=== PATIENT | male | born 1955 | race Caucasian/White ===

== ENCOUNTER 2018-01-31 14:44 | Emergency (ER) | payer OTHER ==
[~2018-01-31 14:44] MED LIST: AMOX-556 PO; DOXY-179 PO; GLIP-154 PO; GUAI400T18 PO; LISI-374 PO; METF-421 PO; METH4TAB66 PO; NICO4LOZ BC; PIOG45TA3 PO; PRAV40TA78 PO; PSEU120T69 PO; RANI-366 PO; [UNRECOGNIZED DRUG - CODE] MC; [UNRECOGNIZED DRUG - OTHER] TP
--- NOTE | 2018-01-31 14:52 | ER Report ---
History and Physical Time Seen By MD: 14:51 HPI/ROS CHIEF COMPLAINT: Throat pain and difficult swallowing HISTORY OF PRESENT ILLNESS: 2-year-old male who presents to the emergency department for a sore throat and difficulty swallowing. Patient states that around 8:00 this morning he developed a sore throat, has increased in size since then significant pain on the right side feels his voice is muffled of the tongue is swollen, feels that the bottom of his mouth is swollen. Patient states he has a history of strep throat however it has been years since he's had any issues. Patient does not appear in distress at the moment, oxygen saturation is in the mid 80s on room air however he is supposed to wear oxygen 02/03. Patient denies nausea, vomiting, chest pain or increased shortness of breath, no rashes no recent infections. [facility] and they did tell him that he did have some dental infections. REVIEW OF SYSTEMS: Constitutional: No fever, no chills. Eyes: No discharge. ENT: As above. Cardiovascular: No chest pain, no palpitations. Respiratory: No cough, no shortness of breath. Gastrointestinal: No abdominal pain, no vomiting. Genitourinary: No hematuria. Musculoskeletal: No back pain. Skin: No rashes. Neurological: No headache. Allergies: Coded Allergies: No Known Drug Allergies (Unverified , 01/31/18) Home Meds Active Scripts Clindamycin Hcl (CLINDAMYCIN HCL) 300 Mg Capsule, 300 MG PO Q6H for 10 Days, # 38 CAPSULE 0 Refills Prov:LAURA BELLA PHYSICIAN RECRUITER-BC 01/31/18 Methylprednisolone (METHYLPREDNISOLONE) 4 Mg Tab.ds.pk, 4 MG PO DIRECTED, #1 PACK 0 Refills Prov:DEACON JARVIS MD 04/04/17 Reported Medications Urea (UREACIN-20) 113.4 Gm Cream..g., 113.4 GM TP PRN 09/18/16 Glipizide (GLIPIZIDE) 10 Mg Tablet, 10 MG PO QDAY 09/18/16 Lisinopril (LISINOPRIL) 40 Mg Tablet, 40 MG PO QDAY, TAB 09/18/16 Nicotine Polacrilex (NICORETTE) 4 Mg Lozenge, 4 MG BC QDAY, LOZENGE 09/18/16 Metformin Hcl (METFORMIN HCL) 1,000 Mg Tablet, 1 TAB PO QDAY, TAB 09/18/16 Pioglitazone Hcl (PIOGLITAZONE HCL) 45 Mg Tablet, 45 MG PO 09/18/16 Blood Sugar Diagnostic (PRECISION XTRA) 1 Each Strip, 1 EACH MC QDAY, STRIP 09/18/16 Guaifenesin (GUAIFENESIN) 400 Mg Tablet, 400 MG PO QDAY 09/18/16 Ranitidine Hcl (ZANTAC) 150 Mg Tablet, 150 MG PO BID, TAB 09/18/16 Discontinued Reported Medications Pravastatin Sodium (PRAVASTATIN SODIUM) 40 Mg Tablet, 40 MG PO QDAY 09/18/16 Discontinued Scripts Doxycycline Hyclate (DOXYCYCLINE HYCLATE) 100 Mg Tablet, 100 MG PO BID, #20 TAB 0 Refills Prov:DEACON JARVIS MD 04/04/17 Pseudoephedrine Hcl (SUDAFED 12 HOUR) 120 Mg Tablet.er, 120 MG PO Q12H, #20 Prov:SWATHI LORENZO DO 09/18/16 Past Medical/Surgical History Patient has a past medical and surgical history of a heart attack, hypertension , hypercholesterolemia, COPD, GERD, wears glasses, type II diabetes, cardiac stents, sinus cysts removed, tonsillectomy. Reviewed Nurses Notes: Yes Constitutional Vital Sign - Last 24 Hours 01/31/18 01/31/18 01/31/18 01/31/18 14:44 14:48 14:48 14:59 Temp 98.3 Pulse ??? 92 81 Resp 20 B/P (MAP) 160/88 (112) 160/88 Pulse Ox 84 92 O2 Delivery Room Air 01/31/18 01/31/18 01/31/18 01/31/18 15:00 15:14 15:15 15:15 Pulse 78 B/P (MAP) 152/93 (112) 123/84 (97) Pulse Ox 94 O2 Flow Rate 3.0 01/31/18 01/31/18 01/31/18 01/31/18 15:29 15:30 15:33 15:33 Pulse 81 74 Resp 14 B/P (MAP) 133/80 (97) Pulse Ox 98 O2 Delivery Nasal Cannula 01/31/18 01/31/18 01/31/18 01/31/18 15:42 15:42 15:44 15:45 Pulse 78 83 Resp 14 B/P (MAP) ???/??? (1665) Pulse Ox 99 93 O2 Delivery Nasal Cannula 01/31/18 01/31/18 01/31/18 01/31/18 15:59 16:00 16:05 16:15 Pulse 86 89 Resp 19 B/P (MAP) 131/73 (92) 136/80 (98) Pulse Ox 92 92 01/31/18 01/31/18 01/31/18 01/31/18 16:20 16:30 16:35 16:45 Pulse 86 87 Resp 31 15 B/P (MAP) 140/85 (103) 140/79 (99) Pulse Ox 93 88 01/31/18 01/31/18 01/31/18 01/31/18 16:50 17:00 17:05 17:15 Pulse 87 86 Resp 22 13 B/P (MAP) 142/84 (103) 142/83 (102) Pulse Ox 92 92 01/31/18 01/31/18 01/31/18 01/31/18 17:20 17:30 17:40 17:45 Pulse 77 80 80 Resp 10 11 6 B/P (MAP) 138/81 (100) 130/85 (100) Pulse Ox 91 91 94 01/31/18 17:50 Pulse 77 Resp 16 Pulse Ox 94 Intake and Output 01/31/18 01/31/18 02/01/18 15:00 23:00 07:00 Intake Total 550 ml Balance 550 ml Physical Exam General Appearance: The patient is alert, has no immediate need for airway protection and no signs of toxicity. Eyes: Pupils equal and round no pallor or injection. ENT, Mouth: Mucous membranes are moist. Erythema to the soft palate and the posterior oropharynx, edema to the right oropharynx. Respiratory: There are no retractions, diminished lung sounds throughout, expiratory wheezing in the right and left upper ramirez. Cardiovascular: Regular rate and rhythm, distant systolic murmur, no clicks or rubs. Gastrointestinal: Abdomen is soft and non tender, no masses, bowel sounds normal. Neurological: Alert and oriented 4. Moving all extremities. Following all commands. No focal neuro deficits. Skin: Warm and dry, no rashes. Musculoskeletal: The right side of the neck is swollen, firm and painful with palpation. Right anterior cervical chain and submandibular lymphadenopathy. No carotid bruits. No stridor. Extremities are nontender, nonswollen and have full range of motion. DIFFERENTIAL DIAGNOSIS: After history and physical exam differential diagnosis was considered for peritonsillar abscess, Jose G angina, strep throat, peritonsillar cellulitis, epiglottitis, tracheitis and infectious mononucleosis. Medical Decision Making Data Points Result Diagram: 01/31/18 1503 01/31/18 1503 Laboratory Hematology Test 01/31/18 15:02 01/31/18 15:03 Group A Streptococcus Screen Negative (NEGATIVE) Red Blood Count 6.81 M/uL (4.00-5.60) Mean Corpuscular Volume 89.8 fL (80.0-96.0) Mean Corpuscular Hemoglobin 30.7 pg (26.0-33.0) Mean Corpuscular Hemoglobin Concent 34.2 g/dL (32.0-36.0) Red Cell Distribution Width 19.9 % (11.5-14.5) Mean Platelet Volume 7.9 fL (7.2-11.1) Neutrophils (%) (Auto) 72.7 % (39.4-72.5) Lymphocytes (%) (Auto) 18.4 % (17.6-49.6) Monocytes (%) (Auto) 5.6 % (4.1-12.4) Eosinophils (%) (Auto) 2.9 % (0.4-6.7) Basophils (%) (Auto) 0.4 % (0.3-1.4) Nucleated RBC Relative Count (auto) 0.1 /100WBC Neutrophils # (Auto) 5.5 K/uL (2.0-7.4) Lymphocytes # (Auto) 1.4 K/uL (1.3-3.6) Monocytes # (Auto) 0.4 K/uL (0.3-1.0) Eosinophils # (Auto) 0.2 K/uL (0.0-0.5) Basophils # (Auto) 0.0 K/uL (0.0-0.1) Nucleated RBC Absolute Count (auto) 0.01 K/uL Sodium Level 142 mmol/L (137-145) Potassium Level 4.0 mmol/L (3.5-5.0) Chloride Level 101 mmol/L (98-107) Carbon Dioxide Level 29 mmol/L (22-30) Blood Urea Nitrogen 16 mg/dl (9-21) Creatinine 1.20 mg/dl (0.66-1.25) Glomerular Filtration Rate Calc > 60.0 Random Glucose 123 mg/dl (75-110) Calcium Level 8.6 mg/dl (8.4-10.2) Total Bilirubin 0.5 mg/dl (0.2-1.3) Aspartate Amino Transf (AST/SGOT) 34 U/L (0-35) Alanine Aminotransferase (ALT/SGPT) 19 U/L (0-56) Alkaline Phosphatase 54 U/L (0-126) Total Protein 6.9 g/dl (6.3-8.2) Albumin 3.5 g/dl (3.5-5.0) Chemistry Test 01/31/18 15:02 01/31/18 15:03 Group A Streptococcus Screen Negative (NEGATIVE) White Blood Count 7.5 k/uL (4.5-11.0) Red Blood Count 6.81 M/uL (4.00-5.60) Hemoglobin 20.9 g/dL (14.0-18.0) Hematocrit 61.1 % (42.0-52.0) Mean Corpuscular Volume 89.8 fL (80.0-96.0) Mean Corpuscular Hemoglobin 30.7 pg (26.0-33.0) Mean Corpuscular Hemoglobin Concent 34.2 g/dL (32.0-36.0) Red Cell Distribution Width 19.9 % (11.5-14.5) Platelet Count 117 K/uL (150-450) Mean Platelet Volume 7.9 fL (7.2-11.1) Neutrophils (%) (Auto) 72.7 % (39.4-72.5) Lymphocytes (%) (Auto) 18.4 % (17.6-49.6) Monocytes (%) (Auto) 5.6 % (4.1-12.4) Eosinophils (%) (Auto) 2.9 % (0.4-6.7) Basophils (%) (Auto) 0.4 % (0.3-1.4) Nucleated RBC Relative Count (auto) 0.1 /100WBC Neutrophils # (Auto) 5.5 K/uL (2.0-7.4) Lymphocytes # (Auto) 1.4 K/uL (1.3-3.6) Monocytes # (Auto) 0.4 K/uL (0.3-1.0) Eosinophils # (Auto) 0.2 K/uL (0.0-0.5) Basophils # (Auto) 0.0 K/uL (0.0-0.1) Nucleated RBC Absolute Count (auto) 0.01 K/uL Glomerular Filtration Rate Calc > 60.0 Calcium Level 8.6 mg/dl (8.4-10.2) Total Bilirubin 0.5 mg/dl (0.2-1.3) Aspartate Amino Transf (AST/SGOT) 34 U/L (0-35) Alanine Aminotransferase (ALT/SGPT) 19 U/L (0-56) Alkaline Phosphatase 54 U/L (0-126) Total Protein 6.9 g/dl (6.3-8.2) Albumin 3.5 g/dl (3.5-5.0) EKG/Imaging Imaging Location: Patient: Alex Oakes : 1955 Visit/Account:[id number] Date of Sevice: 01/31/2018 EXAMINATION: CT neck with IV contrast HISTORY: Right-sided neck pain. COMPARISON: None. TECHNIQUE: Spiral scan was obtained from the hard palate through the upper chest during injection of nonionic iodinated intravenous contrast. Sagittal and coronal reformatted images are also submitted. CONTRAST: 75 mL of IV Isovue-370 One of the following dose optimization techniques was utilized in the performance of this exam: Automated exposure control; adjustment of the mA and/ or kV according to the patient's size; or use of an iterative reconstruction technique. Specific details can be referenced in the facility's radiology CT exam operational policy. FINDINGS: Masses/lesions: There is prominent swelling of the posterior and lateral harden of the oropharynx and hypopharynx. The aryepiglottic folds are thickened and the right aryepiglottic fold is deviated leftward. The epiglottis appears normal. The piriform recesses are narrowed, more on the right. The hypopharyngeal airway is narrowed by the swelling. No abscess is identified. On the right, swelling extends mildly past the right border of the hyoid bone. Airway: Narrowing of the supraglottic airway due to pharyngeal wall swelling and aryepiglottic fold thickening which is more prominent on the right. The subglottic airway just above the false vocal folds measures 1.2 x 0.6 cm in transaxial dimensions. Vessels: Mild calcified plaque at the origin of the left subclavian artery. Musculoskeletal / Body wall: Multilevel disc and facet degenerative changes in the cervical spine. Lymph node assessment: Multiple subcentimeter bilateral cervical lymph nodes. Visualized orbits / brain / paranasal sinuses: Mild mucosal thickening in the maxillary sinuses. Small amount of secretions in the left sphenoid sinus. Periapical lucencies about the roots of multiple maxillary teeth. Upper chest: Negative. IMPRESSION: Prominent swelling of the posterior and lateral harden of the oropharynx and hypopharynx and of the aryepiglottic folds which is more prominent on the right. The soft tissue swelling causes narrowing of the supraglottic airway. There is no abscess. Appearance is suggestive of a severe pharyngitis. Consider follow-up to exclude neoplasm as an etiology for the soft tissue thickening. These findings were discussed with LAURA BELLA at 01/31/2018 4:28 PM. Report Dictated By: Benjamin Carrera MD at 01/31/2018 4:14 PM Report E-Signed By: Benjamin aCrrera MD at 01/31/2018 4:38 PM WSN:[id number] ED Course/Re-evaluation Clinical Indication for ER IV: Hydration, IV Access ED Course The patient was admitted to room. A history and physical were obtained. Differential diagnoses were considered. An IV was started. A CBC, CMP, lactate were obtained. A 500 mL normal saline bolus was given. 600 mg IV clindamycin was given. Negative rapid strep. Given the sudden onset of the patient's symptoms I did do a CT with contrast of the neck which is showing prominent swelling of the posterior and lateral harden of the oropharynx and hypopharynx and of the aryepiglottic folds which is more prominent on the right. The soft tissue swelling causes narrowing of the supraglottic airway. There is no abscess. Appearance is suggestive of a severe pharyngitis. No white count on the lab studies however there was a mild left shift chemistry unremarkable. I did review the lab studies and the CT with patient I did tell him I'm concerned with the amount of swelling noted on the CT and I would like to talk to our hospitalist regarding his case and see if he would keep him in for observation. Patient was reluctant but was agreeable to speaking with the hospitalist. I did speak with Dr. Dinh as noted below. The patient was adamant about going home. I did discuss this with Dr. Dinh we did formulate a plan. The patient will continue taking the clindamycin and [facility]. Patient also understands if he has any changes in the swelling or any concerns for his respiratory status that he will return immediately. Patient was sent home with 6 mg of clindamycin. A prescription for clindamycin was sent to the patient's pharmacy. 01/31/2018 5:02:52 pm I did speak with Dr. Juan Luis Dinh regarding the patient' s case, he is willing to keep the patient in the hospital if the patient is agreeable. I discussed this with the patient the patient states he would prefer to go home he does understand that there are complications that can result as result of the swelling of the airway. I will give the patient clindamycin and Solu-Medrol in the emergency department. Decision to Disposition Date: Jan 31, 2018 Decision to Disposition Time: 18:06 Depart Departure Latest Vital Signs Vital Signs Date Time Temp Pulse Resp B/P (MAP) Pulse Ox O2 Delivery O2 Flow Rate FiO2 01/31/18 17:50 77 16 94 01/31/18 17:45 130/85 (100) 01/31/18 15:42 Nasal Cannula 01/31/18 15:15 3.0 01/31/18 14:48 98.3 Impression: Primary Impression: Pharyngitis, acute Additional Impressions: Supraglottitis Hypopharyngitis Condition: Improved Disposition: HOME OR SELF-CARE New Scripts Clindamycin Hcl (CLINDAMYCIN HCL) 300 Mg Capsule 300 MG PO Q6H for 10 Days, #38 CAPSULE 0 Refills Prov: LAURA BELLA PHYSICIAN RECRUITER-BC 01/31/18 Patient Instructions: Pharyngitis (ED) Additional Instructions: Drink plenty of water. Get plenty of rest. Take the Clindamycin as directed. If you have any indication that the swelling and inflammation is getting worse you must return to the ED immediately. Follow up with the [facility] tomorrow for reevaluation of your swelling and airway. Problem Qualifiers Primary Impression: Pharyngitis, acute Pharyngitis/tonsillitis etiology: unspecified etiology Qualified Codes: J02.9 - Acute pharyngitis, unspecified Additional Impressions: Supraglottitis Airway obstruction: without obstruction Qualified Codes: J04.30 - Supraglottitis, unspecified, without obstruction LAURA BELLA-DUY Jan 31, 2018 14:51
[2018-01-31] MEDS ORDERED: IOPAMIDOL 76% 75 ML INFUS BTL 75 ML ONE (15:27)
[2018-01-31 15:30] LABS: PLATELET COUNT, AUTOMATED 117 K/uL (150-450)
[2018-01-31] MEDS ORDERED: ALBUTEROL/IPRATROPIUM 3 ML NEB NEB ONE (15:30)
--- NOTE | 2018-01-31 16:42 | RADIOLOGY IMAGING REPORT ---
FACILITY: [facility] PATIENT NAME: Alex Oakes : 1955 MR: [id number] V: [id number] EXAM DATE: ORDERING PHYSICIAN: LAURA BELLA TECHNOLOGIST: Location: [facility] Patient: Alex Oakes : 1955 Visit/Account:[id number] Date of Sevice: 01/31/2018 EXAMINATION: CT neck with IV contrast HISTORY: Right-sided neck pain. COMPARISON: None. TECHNIQUE: Spiral scan was obtained from the hard palate through the upper chest during injection o f nonionic iodinated intravenous contrast. Sagittal and coronal reformatted images are also submitte d. CONTRAST: 75 mL of IV Isovue-370 One of the following dose optimization techniques was utilized in the performance of this exam: Autom ated exposure control; adjustment of the mA and/or kV according to the patient's size; or use of an i terative reconstruction technique. Specific details can be referenced in the facility's radiology C T exam operational policy. FINDINGS: Masses/lesions: There is prominent swelling of the posterior and lateral harden of the oropharynx and hypopharynx. The aryepiglottic folds are thickened and the right aryepiglottic fold is deviated left yañez. The epiglottis appears normal. The piriform recesses are narrowed, more on the right. The hypop haryngeal airway is narrowed by the swelling. No abscess is identified. On the right, swelling extend s mildly past the right border of the hyoid bone. Airway: Narrowing of the supraglottic airway due to pharyngeal wall swelling and aryepiglottic fold thickening which is more prominent on the right. The subglottic airway just above the false vocal fol ds measures 1.2 x 0.6 cm in transaxial dimensions. Vessels: Mild calcified plaque at the origin of the left subclavian artery. Musculoskeletal / Body wall: Multilevel disc and facet degenerative changes in the cervical spine. Lymph node assessment: Multiple subcentimeter bilateral cervical lymph nodes. Visualized orbits / brain / paranasal sinuses: Mild mucosal thickening in the maxillary sinuses. Smal l amount of secretions in the left sphenoid sinus. Periapical lucencies about the roots of multiple m axillary teeth. Upper chest: Negative. IMPRESSION: Prominent swelling of the posterior and lateral harden of the oropharynx and hypopharynx and of the ar yepiglottic folds which is more prominent on the right. The soft tissue swelling causes narrowing of the supraglottic airway. There is no abscess. Appearance is suggestive of a severe pharyngitis. Consi juan follow-up to exclude neoplasm as an etiology for the soft tissue thickening. These findings were discussed with LAURA BELLA at 01/31/2018 4:28 PM. Report Dictated By: Benjamin Carrera MD at 01/31/2018 4:14 PM Report E-Signed By: Benjamin Carrera MD at 01/31/2018 4:38 PM WSN:[id number]
[2018-01-31] MEDS ORDERED: methylPREDNIS SUCC 125 MG/2ML IVP ONE (16:55)
[2018-01-31] MEDS ORDERED: NS(*) 0.9% 500 ML BAG 500 ML IV ONE (16:55)
[2018-01-31] MEDS ORDERED: CLINDAMYCIN(*) 600 MG/NS 50 ML 50 ML IVPB ONE (16:55)
[2018-01-31 17:45] VITALS: BP 130/85
[2018-01-31] MEDS ORDERED: CLIN300C99 PO (17:56)
[2018-01-31] MEDS ORDERED: CLINDAMYCIN 150 MG CAP PO ONE (18:00)
== END 2018-01-31 18:05 | disposition home or self-care (01) ==
LOC: ER 14:57
DX: J02.9 Acute pharyngitis, unspecified (principal); J04.30 Supraglottitis, unspecified, without obstruction; J06.0 Acute laryngopharyngitis
CPT/HCPCS: 70491; 85025; 87081; 87880; 94640; 96365; 96375; 99284; J2930; J3490; J7040; J7620; Q9967; 82040; 82247; 82310; 82374; 82435; 82565; 82947; 84075; 84132; 84155; 84295; 84450; 84460; 84520

== ENCOUNTER 2018-10-01 08:55 | Outpatient (RCR) | payer OTHER ==
[2018-07-14 13:02] VITALS: BP 138/82
--- NOTE | 2018-07-27 08:12 | [facility] ONCOLOGY NOTE ---
EVENT DATE: July 26, 2018 CHIEF COMPLAINT/REASON FOR VISIT Mr. Oakes is a pleasant 63-year-old gentleman who presented to the ER recently with severe pharyngitis. Lab work revealed thrombocytopenia as well as a markedly elevated hematocrit. HISTORY OF PRESENT ILLNESS Mr. Oakes presents to discuss his abnormal lab findings. He has noted significant adenopathy in his throat area. He was diagnosed with pharyngitis at the ER earlier this fall. At that time, it was discovered he had the elevated hematocrit and low platelets. He is recovering well; however, he continues to have concern for lymphadenopathy and the elevated hematocrit. I am meeting him today and plan to do a workup to look for myeloproliferative neoplasm as his history is very suggestive of this. PAST MEDICAL HISTORY 1. History of heart attack. 2. Hypertension. 3. Hypercholesterolemia 4. COPD. 5. GERD. 6. Type 2 diabetes. 7. Coronary artery stents. 8. Tonsillectomy. SOCIAL HISTORY Patient is a . FAMILY HISTORY Remarkable for cancer in the brother. There is lupus in the family as well as lung cancer in the mother. MEDICATIONS See chart. REVIEW OF SYSTEMS CONSTITUTIONAL: No fevers, chills, significant weight change. He has been feeling well. HEENT: No headache or vision changes. He did have the recent severe episode of pharyngitis. CARDIOVASCULAR: No chest pain, dyspnea on exertion or edema. He does have significant coronary artery history. RESPIRATORY: No shortness of breath, wheeze or cough. GI: No nausea or vomiting. : No dysuria or hematuria. MUSCULOSKELETAL: No recent joint pain. PSYCHIATRIC: No anxiety or depression. ENDOCRINE: No heat or cold intolerance. The remainder of 14-point review of systems is otherwise negative. PHYSICAL EXAMINATION VITAL SIGNS: Blood pressure 138/82, pulse 69, respiratory rate 16, temperature 98.2 Fahrenheit, oxygen saturation 90% on room air, weight 130 kilograms. Pain 7/10. Fatigue 10/10. He is not in his usual state of health. ECOG Performance Status of 1. GENERAL: Stable condition, resting in the chair today. LYMPHATIC: I am concerned about possible splenomegaly but it is not definitive. No other significant adenopathy. He has had some adenopathy in the neck noted recently. PSYCHIATRIC: Normal mood and affect. NEUROLOGICAL: No focal deficits. Remainder of physical exam otherwise unremarkable and deferred with my attention on counseling and coordination of care. IMPRESSION/REPORT/PLAN Mr. Oakes is a very pleasant 61-year-old gentleman with the following: Markedly elevated hematocrit, adenopathy, severe infection with recent pharyngitis, weakness and fatigue, all of which suggest that he may have a myeloproliferative neoplasm. Plan to check a lab workup and then see the patient early in the new year for followup. His [facility]. I answered all of their many questions today. Billing: New patient level 4. Total time 45 minutes, counseling time 30. MTDD
[2018-09-28 13:01] VITALS: BP 132/83
--- NOTE | 2018-09-28 21:46 | ONCOLOGY FOLLOW UP NOTE ---
EVENT DATE: September 28, 2018 CHIEF COMPLAINT/REASON FOR VISIT Mr. 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 HISTORY OF PRESENT ILLNESS Mr. Oakes returns. I saw him in July 2018, and we did an evaluation for polycythemia vera given his high hematocrit. Thankfully, this was normal, as was BCR-ABL. This was done through the [facility] and, unfortunately, we did not get MPL or CALR mutation analysis. His testosterone was borderline low, but still in the normal range. With further history, I believe strongly that this is a secondary erythrocytosis related to smoking and uncontrolled lung disease. He has upcoming followup with Pulmonary including repeat pulmonary function tests. He has been told he has COPD in the past, but then he states he has also been told he does not have COPD. He tried to take prescribed oxygen, but felt worse with this with more fatigue, he states, and so he discontinued it. I stressed to him today that this would likely be beneficial to him. Other factors include altitude, and they had been planning to move to [place], and this would likely benefit his labs as well. I believe strongly that his 10/10 fatigue is in a large part related to his significantly elevated hematocrit. He had four phlebotomies, but then discontinued them. I think we need to use them more frequently as we did not see a significant drop in his hematocrit. We should do them monthly with a longer duration as well. PAST MEDICAL HISTORY 1. History of heart attack. 2. Hypertension. 3. Hypercholesterolemia 4. COPD. 5. GERD. 6. Type 2 diabetes. 7. Coronary artery stents. 8. Tonsillectomy. SOCIAL HISTORY Patient is a . FAMILY HISTORY Remarkable for cancer in the brother. There is lupus in the family as well as lung cancer in the mother. MEDICATIONS See chart. REVIEW OF SYSTEMS CONSTITUTIONAL: Positive for profound fatigue. No fevers, chills, weight change. He does admit he needs to lose some weight. HEENT: No headache or vision changes. IMMUNOLOGIC: No recent history of infections, although he had a major upper respiratory infection in late 2018. CARDIOVASCULAR: No chest pain, dyspnea on exertion, or edema. He does have a significant coronary artery history. RESPIRATORY: No shortness of breath at rest. Positive dyspnea on exertion. No cough. GASTROINTESTINAL: No nausea or vomiting. GENITOURINARY: No dysuria or hematuria. MUSCULOSKELETAL: No recent joint pain. PSYCHIATRIC: No anxiety or depression. ENDOCRINE: No heat or cold intolerance. Remainder of 14-point review of systems otherwise negative. PHYSICAL EXAMINATION VITAL SIGNS: Blood pressure 132/83, pulse 79, respiratory rate 16, temperature 97.2 Fahrenheit, oxygen saturation 91% on room air. Weight 132.8 kg. Pain 8/10. Fatigue 10/10. GENERAL: Stable condition, resting comfortably in the chair. HEENT: Normocephalic, atraumatic. CARDIOVASCULAR: Regular rate and rhythm. LUNGS: Deferred. ABDOMEN: Obese. PSYCHIATRIC: Normal mood and affect. NEUROLOGIC: No deficits. Remainder of physical exam otherwise unremarkable. IMPRESSION/REPORT/PLAN Mr. Oakes is a very pleasant 63-year-old gentleman with the followin. Severe secondary erythrocytosis. JAK2 negative. We need to get phlebotomies monthly and continue them for a longer duration than just three or four times. I would like his phlebotomy goal to get his hematocrit down to less than 50, and greater than 50 should be done with a phlebotomy. 2. Suspect chronic obstructive pulmonary disease, severity unknown. He has upcoming repeat PFTs. Recommended followup with Pulmonary and strongly encouraged him to follow whatever recommendations they have including potentially oxygen. 3. Borderline low testosterone. No replacement required now. 4. Living at altitude. The family has been considering moving to [place], and this would assist with this problem if they end up deciding to move to [place]. I answered all their questions. BILLING Return visit level 4. Total time 30 minutes, counseling time 20. MTDD
[~2018-10-01 08:55] MED LIST changes: +CHOL10005 PO; +CINN500C12 PO; +CLIN300C99 PO; +FLU60SYR36 IM; -METF-421 PO; +METF-452 PO; -PIOG45TA3 PO; +PIOG45TA65 PO
[2018-10-01 09:00] VITALS: BP 116/79
[2018-10-01 09:41] VITALS: BP 108/68
== END 2018-10-12 ==
LOC: SPU 08:55
PROVIDERS: ATTEND Internal Medicine
DX: D75.1 Secondary polycythemia (principal); J44.9 Chronic obstructive pulmonary disease, unspecified; E11.9 Type 2 diabetes mellitus without complications; R06.00 Dyspnea, unspecified
CPT/HCPCS: 85014; 99195; 99202; 99212

== ENCOUNTER 2018-11-21 15:18 | Emergency (ER) | payer OTHER ==
--- NOTE | 2018-11-21 15:26 | ER Report ---
History and Physical Time Seen By MD: 15:26 HPI/ROS CHIEF COMPLAINT: Cough and shortness of breath HISTORY OF PRESENT ILLNESS: This is a 63-year-old male who presents to emergency department for a cough and shortness of breath. Patient states that over the last 2-3 weeks he's had increased shortness of breath with increased coughing episodes, decreased inability to sleep lying on his back, has had audible wheezing according to his was at the bedside. He is also supposed follow-up with pulmonology for chronic coughing however this is much worse than usual. Continues to smoke 3 packs of cigarettes a day. Has had subjective fevers, no nausea or vomiting. No chest pain. No diarrhea or rashes. REVIEW OF SYSTEMS: Constitutional: No fever, no chills. Eyes: No discharge. ENT: No sore throat. Cardiovascular: No chest pain, no palpitations. Respiratory: As above. Gastrointestinal: No abdominal pain, no vomiting. Genitourinary: No hematuria. Musculoskeletal: No back pain. Skin: No rashes. Neurological: No headache. Allergies: Coded Allergies: No Known Drug Allergies (Unverified , 01/31/18) Home Meds Active Scripts Prednisone (PREDNISONE) 20 Mg Tablet, 20 MG PO BID, #10 TAB Prov:ALVIN BELLA [facility] 11/21/18 Azithromycin 250 Mg Tab (AZITHROMYCIN 250 MG TAB) 250 Mg Tablet, 1 TAB PO QDAY, #4 TAB 1 tab a day until gone. Prov:ALVIN BELLA [facility] 11/21/18 Clindamycin Hcl (CLINDAMYCIN HCL) 300 Mg Capsule, 300 MG PO Q6H for 10 Days, #38 CAPSULE 0 Refills Prov:ALVIN BELLA [facility]- 01/31/18 Reported Medications Cholecalciferol (Vitamin D3) (VITAMIN D3) 1,000 Unit Tablet, 500 UNIT PO DAILY, TAB 09/28/18 Cinnamon Bark (CINNAMON) 500 Mg Capsule, 1000 MG PO DAILY, CAPSULE 09/28/18 Urea (UREACIN-20) 113.4 Gm Cream..g., 113.4 GM TP PRN 09/18/16 Glipizide (GLIPIZIDE) 10 Mg Tablet, 10 MG PO QDAY 09/18/16 Lisinopril (LISINOPRIL) 40 Mg Tablet, 40 MG PO QDAY, TAB 09/18/16 Nicotine Polacrilex (NICORETTE) 4 Mg Lozenge, 4 MG BC QDAY, LOZENGE 09/18/16 Metformin Hcl (METFORMIN HCL) 1,000 Mg Tablet, 1 TAB PO QDAY, TAB 09/18/16 Pioglitazone Hcl (PIOGLITAZONE HCL) 45 Mg Tablet, 45 MG PO 09/18/16 Blood Sugar Diagnostic (PRECISION XTRA) 1 Each Strip, 1 EACH MC QDAY, STRIP 09/18/16 Guaifenesin (GUAIFENESIN) 400 Mg Tablet, 400 MG PO QDAY 09/18/16 Ranitidine Hcl (ZANTAC) 150 Mg Tablet, 150 MG PO BID, TAB 09/18/16 Past Medical/Surgical History The patient has a past medical surgical history of cardiac stents, myocardial infarction, hypertension, hypercholesterolemia, COPD, GERD, type II diabetes, sinus surgery, facial trauma, tonsillectomy, significant history of smoking. Reviewed Nurses Notes: Yes Constitutional Vital Sign - Last 24 Hours 11/21/18 11/21/18 11/21/18 11/21/18 15:22 15:30 15:50 16:00 Temp 97.8 Pulse 75 76 75 Resp 19 B/P (MAP) 138/80 130/84 (99) 121/75 (90) Pulse Ox 81 91 91 O2 Delivery Room Air O2 Flow Rate 3.5 11/21/18 11/21/18 11/21/18 11/21/18 16:05 16:05 16:14 16:46 Pulse 71 74 73 Resp 16 16 16 Pulse Ox 94 O2 Delivery Nasal Cannula O2 Flow Rate 3.5 11/21/18 11/21/18 16:46 17:09 Pulse 82 Resp 16 Pulse Ox 90 O2 Delivery Nasal Cannula O2 Flow Rate 3.5 Physical Exam General Appearance: The patient is alert, has no immediate need for airway protection and no signs of toxicity. Eyes: Pupils equal and round no pallor or injection. ENT, Mouth: Mucous membranes are moist. Respiratory: There are no retractions, diminished throughout, coarse in the bases, an x-ray wheeze in the upper ramirez bilaterally. Cardiovascular: Regular rate and rhythm, distant, no murmurs, clicks or rubs. Gastrointestinal: Abdomen is round, soft and non tender, no masses, bowel sounds normal. Neurological: Alert and oriented 4. Moving all extremities. Following all commands. No focal neuro deficits. Skin: Warm and dry, no rashes. Musculoskeletal: Neck is supple non tender. Extremities are nontender, nonswollen and have full range of motion. DIFFERENTIAL DIAGNOSIS: After history and physical exam differential diagnosis was considered for shortness of breath including but not limited to pulmonary infectious process, COPD, asthma, pulmonary embolus and congestive heart failure. Medical Decision Making Data Points Result Diagram: 11/21/18 1605 11/21/18 1605 Laboratory Hematology Test 11/21/18 16:05 Red Blood Count 6.10 M/uL (4.00-5.60) Mean Corpuscular Volume 87.9 fL (80.0-96.0) Mean Corpuscular Hemoglobin 28.7 pg (26.0-33.0) Mean Corpuscular Hemoglobin Concent 32.7 g/dL (32.0-36.0) Red Cell Distribution Width 18.4 % (11.5-14.5) Mean Platelet Volume 7.9 fL (7.2-11.1) Neutrophils (%) (Auto) 70.1 % (39.4-72.5) Lymphocytes (%) (Auto) 19.0 % (17.6-49.6) Monocytes (%) (Auto) 7.8 % (4.1-12.4) Eosinophils (%) (Auto) 2.4 % (0.4-6.7) Basophils (%) (Auto) 0.7 % (0.3-1.4) Nucleated RBC Relative Count (auto) 0.1 /100WBC Neutrophils # (Auto) 4.8 K/uL (2.0-7.4) Lymphocytes # (Auto) 1.3 K/uL (1.3-3.6) Monocytes # (Auto) 0.5 K/uL (0.3-1.0) Eosinophils # (Auto) 0.2 K/uL (0.0-0.5) Basophils # (Auto) 0.0 K/uL (0.0-0.1) Nucleated RBC Absolute Count (auto) 0.01 K/uL Peripheral Blood Smear No Y/N Sodium Level 138 mmol/L (137-145) Potassium Level 4.6 mmol/L (3.5-5.0) Chloride Level 102 mmol/L (98-107) Carbon Dioxide Level 30 mmol/L (22-30) Blood Urea Nitrogen 19 mg/dl (9-21) Creatinine 1.00 mg/dl (0.66-1.25) Glomerular Filtration Rate Calc > 60.0 Random Glucose 84 mg/dl (75-110) Calcium Level 8.8 mg/dl (8.4-10.2) Total Bilirubin 0.5 mg/dl (0.2-1.3) Aspartate Amino Transf (AST/SGOT) 25 U/L (0-35) Alanine Aminotransferase (ALT/SGPT) 23 U/L (0-56) Alkaline Phosphatase 52 U/L (0-126) Troponin I < 0.012 ng/ml B-Type Natriuretic Peptide 46 pg/ml (0-100) Total Protein 7.5 g/dl (6.3-8.2) Albumin 4.1 g/dl (3.5-5.0) Chemistry Test 11/21/18 16:05 White Blood Count 6.8 k/uL (4.5-11.0) Red Blood Count 6.10 M/uL (4.00-5.60) Hemoglobin 17.5 g/dL (14.0-18.0) Hematocrit 53.6 % (42.0-52.0) Mean Corpuscular Volume 87.9 fL (80.0-96.0) Mean Corpuscular Hemoglobin 28.7 pg (26.0-33.0) Mean Corpuscular Hemoglobin Concent 32.7 g/dL (32.0-36.0) Red Cell Distribution Width 18.4 % (11.5-14.5) Platelet Count 172 K/uL (150-450) Mean Platelet Volume 7.9 fL (7.2-11.1) Neutrophils (%) (Auto) 70.1 % (39.4-72.5) Lymphocytes (%) (Auto) 19.0 % (17.6-49.6) Monocytes (%) (Auto) 7.8 % (4.1-12.4) Eosinophils (%) (Auto) 2.4 % (0.4-6.7) Basophils (%) (Auto) 0.7 % (0.3-1.4) Nucleated RBC Relative Count (auto) 0.1 /100WBC Neutrophils # (Auto) 4.8 K/uL (2.0-7.4) Lymphocytes # (Auto) 1.3 K/uL (1.3-3.6) Monocytes # (Auto) 0.5 K/uL (0.3-1.0) Eosinophils # (Auto) 0.2 K/uL (0.0-0.5) Basophils # (Auto) 0.0 K/uL (0.0-0.1) Nucleated RBC Absolute Count (auto) 0.01 K/uL Peripheral Blood Smear No Y/N Glomerular Filtration Rate Calc > 60.0 Calcium Level 8.8 mg/dl (8.4-10.2) Total Bilirubin 0.5 mg/dl (0.2-1.3) Aspartate Amino Transf (AST/SGOT) 25 U/L (0-35) Alanine Aminotransferase (ALT/SGPT) 23 U/L (0-56) Alkaline Phosphatase 52 U/L (0-126) Troponin I < 0.012 ng/ml B-Type Natriuretic Peptide 46 pg/ml (0-100) Total Protein 7.5 g/dl (6.3-8.2) Albumin 4.1 g/dl (3.5-5.0) EKG/Imaging EKG Interpretation 12 lead EKG: Time of EKG 1615. Rhythm: Normal sinus rhythm, ventricular rate 74 bpm. Ranger: normal QRS: normal ST segments: No ST depression or elevation identified. No previous EKGs for comparison. Imaging Location[place] [facility] [place] Patient: Alex Oakes : 1955 Visit/Account:[id number] Date of Sevice: 11/21/2018 EXAMINATION: Chest 2 Views HISTORY: Respiratory distress. COMPARISON: None. FINDINGS: The lungs are clear. No focal consolidation or pleural fluid. No pneumothorax. Normal cardiomediastinal silhouette, with normal heart size and pulmonary vascularity. No acute osseous findings. Chronic degenerative changes along the spine. IMPRESSION: No evidence of acute cardiopulmonary disease. Report Dictated By: Dawit Zhou MD at 11/21/2018 4:50 PM Report E-Signed By: Dawit Zhou MD at 11/21/2018 4:56 PM WSN:[email or web address] ED Course/Re-evaluation Clinical Indication for ER IV: Hydration, IV Access ED Course The patient was admitted to room. A history and physical were obtained. Differential diagnoses were considered. An IV was started. EKG showing sinus rhythm. A CBC, CMP. CBC and chemistry unremarkable, negative troponin, negative BNP. Two-view chest x-ray negative for any acute cardiopulmonary process. Although the laboratory studies in the x-ray were negative, patient's physical exam was concerning for early onset pneumonia, and hypoxia, patient has a history of COPD, this is likely a COPD exacerbation with probable pneumonia. Upon arrival patient's SPO2 was 81%, he was given 3 duo nebs with moderate improvement, I did try to set the patient up with home oxygen as he wanted go home and did not want to be admitted to the hospital, however with his insurance they are not going to cover it with C go through the [facility], he declined paying out of pocket for his oxygen, I did send the patient home with a flutter valve, incentive spirometer and metered-dose inhaler. He has home nebulizers. He was also given a 125 mg IV site Medrol dose, started on azithromycin in the ER. A prescription for the remainder of the azithromycin was sent to the patient's pharmacy as well as a prednisone burst. Patient had strict instructions to return to the ER immediately should he have worsening shortness breath or any other concerns, he and his both expressed understanding and was discharged home. 11/21/2018 6:28:04 pm the patient is not able to pay for their home oxygen at this time, they have [email or web address] insurance, and the insurance will not pay for it lasted spelled through the [facility]. Patient was sent home with a flutter valve, incentive spirometer and metered-dose inhaler. He was also started on antibiotics and steroids today. He will follow-up with the [facility] tomorrow. Decision to Disposition Date: Nov 21, 2018 Decision to Disposition Time: 18:27 Depart Departure Latest Vital Signs Vital Signs Date Time Temp Pulse Resp B/P (MAP) Pulse Ox O2 Delivery O2 Flow Rate FiO2 11/21/18 17:09 82 16 11/21/18 16:46 90 Nasal Cannula 3.5 11/21/18 16:00 121/75 (90) 11/21/18 15:22 97.8 Impression: Primary Impression: Hypoxia Additional Impressions: COPD exacerbation Bronchitis Condition: Improved Disposition: HOME OR SELF-CARE New Scripts Prednisone (PREDNISONE) 20 Mg Tablet 20 MG PO BID, #10 TAB Prov: SHAYNEALVIN Way [facility]IL EDGER-BC 11/21/18 Azithromycin 250 Mg Tab (AZITHROMYCIN 250 MG TAB) 250 Mg Tablet 1 TAB PO QDAY, #4 TAB 1 tab a day until gone. Prov: SHAYNEALVIN WINCHESTERP-BC 11/21/18 Departure Forms: ER Transition Record, Home Oxygen, Nebulizer RX, Durable Medical Equipment-Oxygen: Oxygen Concentrator, Portable Oxygen Gas Reason for Use/Diagnosis: Bronchitis, hypoxia, copd exacerbation Start Date of the Order: Nov 21, 2018 Dosage or Concentration (if applicable) - LPM: 3 Route of Administration (if applicable): Nasal Cannula Frequency of Use: Continuous Duration Home O2 Required: 30 Duration Units: Days Room Air Oxygen Saturation: 81 ER Prescribing Physician's Name: Alvin Bella NPI Numbers for Local ER MDs: Shayne [id number] Medications Reconciliation, Patient Portal Information Patient Instructions: Acute Bronchitis (ED), Bacterial Pneumonia (ED), COPD (Chronic Obstructive Pulmonary Disease) (ED), Hypoxia (ED) Additional Instructions: The laboratory studies do not indicate elevated white blood cell count, chest x- ray does not show obvious sign of pneumonia, however with the increased short ness of breath, very productive cough and low oxygen saturation and the aches and chills at home I'm going to treat you as an early onset pneumonia. You were started on azithromycin. You were given a steroid burst. We've also started Ge[employer] home oxygen. [facility] Get plenty of rest. Drink plenty of fluids. Return to ER for any other concerns or worsening symptoms. Problem Qualifiers ALVIN BELLA TAIL [facility]-BC Nov 21, 2018 15:26
[2018-11-21] MEDS ORDERED: NS(*) 0.9% 1000 ML BAG 1,000 ML IV ONE (15:51)
[2018-11-21] MEDS ORDERED: methylPREDNIS SUCC 125 MG/2ML IVP ONE (15:55)
[2018-11-21] MEDS ORDERED: ALBUTEROL/IPRATROPIUM 3 ML NEB NEB ONE ×2 (15:55→16:40)
[2018-11-21 16:23] LABS: PLATELET COUNT, AUTOMATED 172 K/uL (150-450)
--- NOTE | 2018-11-21 17:00 | RADIOLOGY IMAGING REPORT ---
FACILITY: [facility] PATIENT NAME: Alex Oakes : 1955 MR: [id number] V: [id number] EXAM DATE: ORDERING PHYSICIAN: LAURA BELLA TECHNOLOGIST: [place] [facility] [place] Oakes : 1955 Visit/Account:[id number] Date of Sevice: 11/21/2018 EXAMINATION: Chest 2 Views HISTORY: Respiratory distress. COMPARISON: None. FINDINGS: The lungs are clear. No focal consolidation or pleural fluid. No pneumothorax. Normal cardiomediastinal silhouette, with normal heart size and pulmonary vascularity. No acute osseous findings. Chronic degenerative changes along the spine. IMPRESSION: No evidence of acute cardiopulmonary disease. Report Dictated By: Dawit Zhou MD at 11/21/2018 4:50 PM Report E-Signed By: Dawit Zhou MD at 11/21/2018 4:56 PM WSN:[id number]
[2018-11-21] MEDS ORDERED: AZIT-18 PO (17:47)
[2018-11-21] MEDS ORDERED: PRED20TA6 PO (17:47)
[2018-11-21] MEDS ORDERED: AZITHROMYCIN 250 MG TAB PO ONE (17:55)
[2018-11-21] MEDS ORDERED: ALBUTEROL 8 GM INHALER INH ONE (18:20)
[2018-11-21 18:30] VITALS: BP 113/59
--- NOTE | 2018-11-21 19:11 | EKG ---
FACILITY: [facility] - [place] PATIENT NAME: RAUL AGUILAR : [id number] MR: [id number] V: [id number] EXAM DATE: ORDERING PHYSICIAN: LAURA BELLA TECHNOLOGIST: ABELARDO Test Reason : SOB Blood Pressure : / mmHG Vent. Rate : 074 BPM Atrial Rate : 074 BPM P-R Int : 194 ms QRS Dur : 102 ms QT Int : 392 ms P-R-T Axes : 028 090 044 degrees QTc Int : 435 ms Sinus rhythm Nonspecific interventricular conduction delay Nonspecific ST findings inferior leads No previous ECGs available Confirmed by KARMEN TRUJILLO ([id number]) on 11/21/2018 9:35:00 PM Referred By: LAURA Confirmed By:KARMEN TRUJILLO
== END 2018-11-21 18:51 | disposition home or self-care (01) ==
LOC: ER 15:35
DX: J44.1 Chronic obstructive pulmonary disease with (acute) exacerbation (principal); J40 Bronchitis, not specified as acute or chronic; F17.210 Nicotine dependence, cigarettes, uncomplicated; I10 Essential (primary) hypertension; E11.9 Type 2 diabetes mellitus without complications
CPT/HCPCS: 71046; 83880; 84484; 85025; 93005; 94640; 94667; 96374; 99284; J2930; J7030; J7620; Q0144; 82040; 82247; 82310; 82374; 82435; 82565; 82947; 84075; 84132; 84155; 84295; 84450; 84460; 84520

== ENCOUNTER 2019-01-07 10:00 | Outpatient (RCR) | payer OTHER ==
[2018-10-29 10:00] VITALS: BP 122/66
[2018-10-29 10:30] VITALS: BP 117/63
[2018-11-29 10:03] VITALS: BP 117/69
[2018-11-29 10:41] VITALS: BP 111/70
[~2019-01-07 10:00] MED LIST changes: +AZIT-18 PO; +PRED20TA6 PO; -RANI-366 PO; +RANI-54 PO
[2019-01-07 10:08] VITALS: BP 126/69
== END 2019-01-26 ==
LOC: SPU 10:00
PROVIDERS: ATTEND Internal Medicine
DX: D45 Polycythemia vera (principal)
CPT/HCPCS: 36415; 85014; 99195

== ENCOUNTER → 2019-03-03 | Outpatient (CLI) | payer OTHER ==
[~2019-03-03] MED LIST changes: +REGADENOSON 0.4 MG/5 ML SYR ONE
--- NOTE | 2019-03-03 18:40 | RADIOLOGY IMAGING REPORT ---
[place] [facility] [place]: Alex Oakes : 1955 MR: [id number] V: [id number] EXAM DATE: ORDERING PHYSICIAN: TASH MALAGON TECHNOLOGIST: Location: [facility] Patient: Alex Oakes : 1955 Visit/Account:[id number] Date of Sevice: 03/03/2019 EXAMINATION: Single isotope SPECT imaging with regadenoson infusion and gated SPECT imaging. DATE OF EXAMINATION: 03/03/2019. DATE OF INTERPRETATION: 03/03/2019. REQUESTING PHYSICIAN: TASH MALAGON. INDICATION: The patient is a 63-year-old male evaluated for shortness of breath, history CAD. PROCEDURE: After informed consent the patient received an intravenous injection of 11.1 mCi of Tc-99 m sestamibi followed at an appropriate time interval by rest imaging. The patient then subsequently received an intravenous infusion of 0.4 mg of regadenoson per protocol without complication. Resting heart rate was 76 bpm with a peak heart rate of 92 bpm. Blood pressure at rest was 106 / 59 and fol lowing infusion was 138 / 66. Baseline EKG demonstrates normal sinus rhythm, no ST or T-wave abnorma lities. There were no EKG changes of ischemia following infusion. Symptoms were nonspecific. The p atient then received an intravenous injection of 28.8 mCi of Tc-99m sestamibi followed by stress imag ing. RAW DATA: Examination of the summed raw data revealed a fair quality study. MYOCARDIAL PERFUSION: The tomographic images demonstrate small, largely fixed inferoseptal defect pr esent throughout imaging. Significant amount of liver uptake suggests this is attenuation artifact. GATED IMAGES: The gated images demonstrate normal wall motion, ejection fraction 70%. IMPRESSION: 1. Fair quality study with significant liver uptake causing attenuation in the inferoseptal wall. 2. Otherwise normal myocardial perfusion scan. No evidence of reversible ischemia 3. Normal LV systolic function; LVEF 70%. 4. Based on the results of this exam, the patient appears to be at low risk for future cardiovascular events but remains intermediate risk due to history of CAD. Report Dictated By: Tash Malagon at 03/03/2019 6:29 PM Report E-Signed By: aTsh Malagon at 03/03/2019 6:33 PM WSN:[id number]
== END ==
LOC: NUC 00:32
PROVIDERS: ATTEND Internal Medicine
DX: R06.02 Shortness of breath (principal)
CPT/HCPCS: 78452; 93017; A9500; J2785